=== PATIENT | female | born 1995 | race Caucasian/White ===

== ENCOUNTER 2018-12-19 13:47 | Inpatient (IN) | payer OTHER ==
[2018-12-19] MEDS ORDERED: NS 1,000 ML IV ONE (14:25)
[2018-12-19] MEDS ORDERED: ONDANSETRON 4 MG/2 ML VIAL IVP ONE (14:25)
[2018-12-19] MEDS ORDERED: LORazepam 2 MG/ML INJ IVP ONE ×2 (14:25→16:34)
--- NOTE | 2018-12-19 14:27 | EDPHY ---
H & P Stated Complaint: withdrawal from etoh vomiting anxiety (has scratches from kitten over her a Time Seen by Provider: 12/19/18 14:01 HPI/ROS: CHIEF COMPLAINT: Alcohol withdrawal, suicidal thoughts, anxiety HISTORY OF PRESENT ILLNESS: Patient presents the ED with symptoms of alcohol withdrawal including vomiting and anxiety. The patient reports she has occasional suicidal thoughts which are the precipitant to her drinking. The patient had been under the care of a prescriber in had been on psychiatric medications which she is no longer taking. The patient denies any history of fall or trauma. The patient denies specific suicidal plan. Patient is requesting an IV medications for symptoms surrounding her anxiety and vomiting. The patient reports that she has a small kidney at home and has sustained multiple superficial scratches on her arms and face from the cat. REVIEW OF SYSTEMS: A comprehensive 10 point review of systems is otherwise negative aside from elements mentioned in the history of present illness. Source: Patient Exam Limitations: No limitations - Personal History LMP (Females 10-55): IUD In Place Current Tetanus Diphtheria and Acellular Pertussis (TDAP): Yes - Medical/Surgical History Hx Asthma: No Hx Chronic Respiratory Disease: No Hx Diabetes: No Hx Cardiac Disease: No Hx Renal Disease: No Hx Cirrhosis: No Hx Alcoholism: Yes Hx HIV/AIDS: No Hx Splenectomy or Spleen Trauma: No Other PMH: eating disorder/bulimia - Social History Smoking Status: Current every day smoker - Physical Exam Exam: General Appearance: Alert, no distress Eyes: Pupils equal and round no pallor or injection ENT, Mouth: Mucous membranes moist Respiratory: There are no retractions, lungs are clear to auscultation Cardiovascular: Regular rate and rhythm Gastrointestinal: Abdomen is soft and nontender, no masses, bowel sounds normal Neurological: A&O, normal motor function, normal sensory exam, normal cranial nerves Skin: Multiple superficial scratches Musculoskeletal: Neck is supple nontender Extremities: symmetrical, full range of motion Psychiatric: Patient is oriented X 3, there is no agitation, endorses suicidal ideation without a plan Constitutional: Initial Vital Signs Temperature (C) 37.4 C 12/19/18 13:50 Heart Rate 143 H 12/19/18 13:50 Respiratory Rate 12/19/18 13:50 Blood Pressure 149/115 H 12/19/18 13:50 O2 Sat (%) 94 12/19/18 13:50 O2 Delivery Mode Room Air Allergies/Adverse Reactions: No Known Allergies Allergy (Unverified 12/19/18 13:49) Home Medications: Medication Instructions Recorded Concerta 12/19/18 traZODone 12/19/18 Medical Decision Making ED Course/Re-evaluation: The patient presents the emergency department with alcohol withdrawal symptoms. The patient also endorses symptoms of suicidal ideation without a specific plan. The patient was noted to have cuts on her body which did appear to be consistent with animal scratches. The patient had an IV established. She received 1 mg of Ativan. She received 4 mg of IV Zofran. Laboratory testing is unremarkable. The patient was medically cleared for psychiatric evaluation. She was placed on a [facility] did detainer in the emergency department by myself. The patient was seen by Psychiatry. They do not feel she meets criteria for involuntary psychiatric hospitalization but do feel that she would be reasonable for voluntary psychiatric admission which the patient would like to do. The patient was accepted for admission to the [facility] inpatient psychiatric unit by Dr. Nieto. [facility]. Differential Diagnosis: Differential diagnosis considered includes alcohol intoxication, alcohol withdrawal syndrome, suicidal ideation, anxiety, psychosis, depression - Data Points Laboratory Results: Laboratory Results 12/19/18 14:40 12/19/18 14:40 12/19/18 12/19/18 12/19/18 14:40 14:40 14:40 WBC RBC Hgb Hct MCV MCH MCHC RDW Plt Count MPV Neut % (Auto) Lymph % (Auto) [place] % (Auto) Eos % (Auto) Baso % (Auto) Nucleat RBC Rel Count Absolute Neuts (auto) Absolute Lymphs (auto) Absolute Monos (auto) Absolute Eos (auto) Absolute Basos (auto) Absolute Nucleated RBC Immature Gran % Immature Gran # Sodium 138 mEq/L mEq/L (135-145) Potassium 4.5 mEq/L mEq/L (3.5-5.2) Chloride 102 mEq/L mEq/L (97-110) Carbon Dioxide 18 mEq/l L mEq/l (22-31) Anion Gap 18 mEq/L H mEq/L (6-14) BUN 10 mg/dL mg/dL (7-23) Creatinine 0.8 mg/dL mg/dL (0.6-1.0) Estimated GFR > 60 Glucose 80 mg/dL mg/dL (70-100) Calcium 9.4 mg/dL mg/dL (8.5-10.4) Beta HCG, Qual NEGATIVE Urine Opiates Screen NEGATIVE (NEGATIVE) Acetaminophen < 10 mcg/mL L mcg/mL (10-30) Urine Barbiturates NEGATIVE (NEGATIVE) Ur Phencyclidine Scrn NEGATIVE (NEGATIVE) Ur Amphetamine Screen NEGATIVE (NEGATIVE) U Benzodiazepines Scrn NEGATIVE (NEGATIVE) Urine Cocaine Screen NEGATIVE (NEGATIVE) U Marijuana (THC) Screen NON-NEGATIVE H (NEGATIVE) Ethyl Alcohol 147 mg/dL H mg/dL (0-10) 12/19/18 14:40 WBC 6.15 10^3/uL 10^3/uL (3.80-9.50) RBC 4.48 10^6/uL 10^6/uL (4.18-5.33) Hgb 13.9 g/dL g/dL (12.6-16.3) Hct 39.4 % % (38.0-47.0) MCV 87.9 fL fL (81.5-99.8) MCH 31.0 pg pg (27.9-34.1) MCHC 35.3 g/dL g/dL (32.4-36.7) RDW 12.7 % % (11.5-15.2) Plt Count 300 10^3/uL 10^3/uL (150-400) MPV 9.3 fL fL (8.7-11.7) Neut % (Auto) 75.4 % H % (39.3-74.2) Lymph % (Auto) 20.0 % % (15.0-45.0) [place] % (Auto) 3.7 % L % (4.5-13.0) Eos % (Auto) 0.0 % L % (0.6-7.6) Baso % (Auto) 0.7 % % (0.3-1.7) Nucleat RBC Rel Count 0.0 % % (0.0-0.2) Absolute Neuts (auto) 4.64 10^3/uL 10^3/uL (1.70-6.50) Absolute Lymphs (auto) 1.23 10^3/uL 10^3/uL (1.00-3.00) Absolute Monos (auto) 0.23 10^3/uL L 10^3/uL (0.30-0.80) Absolute Eos (auto) 0.00 10^3/uL L 10^3/uL (0.03-0.40) Absolute Basos (auto) 0.04 10^3/uL 10^3/uL (0.02-0.10) Absolute Nucleated RBC 0.00 10^3/uL 10^3/uL (0-0.01) Immature Gran % 0.2 % % (0.0-1.1) Immature Gran # 0.01 10^3/uL 10^3/uL (0.00-0.10) Sodium Potassium Chloride Carbon Dioxide Anion Gap BUN Creatinine Estimated GFR Glucose Calcium Beta HCG, Qual Urine Opiates Screen Acetaminophen Urine Barbiturates Ur Phencyclidine Scrn Ur Amphetamine Screen U Benzodiazepines Scrn Urine Cocaine Screen U Marijuana (THC) Screen Ethyl Alcohol Medications Given: Discontinued Medications Sodium Chloride (Ns) 1,000 mls @ 0 mls/hr IV EDNOW ONE; Wide Open PRN Reason: Protocol Stop: 12/19/18 14:26 Last Admin: 12/19/18 14:45 Dose: 1,000 mls Lorazepam (Ativan Injection) 1 mg IVP EDNOW ONE Stop: 12/19/18 14:26 Last Admin: 12/19/18 14:58 Dose: 1 mg Lorazepam (Ativan Injection) 1 mg IVP EDNOW ONE Stop: 12/19/18 16:35 Last Admin: 12/19/18 16:47 Dose: 1 mg Ondansetron HCl (Zofran) 4 mg IVP EDNOW ONE Stop: 12/19/18 14:26 Last Admin: 12/19/18 14:58 Dose: 4 mg Departure - Departure Disposition: [facility] IP Clinical Impression: Alcoholic intoxication, Alcohol dependence Condition: Good Referrals: NONE *PRIMARY CARE P,. [Primary Care Provider] - As per Instructions
[2018-12-19 15:01] LABS: PLATELET COUNT 300 10^3/uL (150-400)
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
--- NOTE | 2018-12-19 20:23 | ASMTTCLDSP ---
TLC Discharge Disposition Disposition: Answers: Admit Discharge Concerns/Recommendations: Notes: Pt was offered voluntary mental health admission due to significant degree of depression and SI without a plan; Pt accepted. The ED physician, Dr Viveros and the on-call psychiatrist, Dr Nieto agreed with hospitalization. Dr Nieto accepted pt. Was patient given the Answers: Yes Inpatient Behavioral Health Prohibited Belongings List while in the ED? For inpatient Dr Nieto admission, the following psychiatrist agreed to accept patient for admission to Behavioral Health ([facility]): Date Signed: 12/19/2018 08:23 PM Electronically Signed By:Alva Toribio
[2018-12-19] MEDS ORDERED: chlordiazePOXIDE 25 MG CAP PO PRN ×2 (20:51→22:42)
[2018-12-19] MEDS ORDERED: LORazepam 1 MG TAB PO PRN ×2 (20:51→22:08)
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
[2018-12-19] MEDS ORDERED: chlordiazePOXIDE 25 MG CAP PO SCH (22:00)
[2018-12-19] MEDS ORDERED: PROMETHAZINE HCL 25 MG SUPPR PR PRN (22:42)
[2018-12-19] MEDS ORDERED: OLANZapine 5 MG TAB PO PRN (22:42)
[2018-12-19] MEDS ORDERED: ACETAMINOPHEN 325 MG TAB PO PRN (22:42)
[2018-12-19] MEDS ORDERED: PROMETHAZINE HCL 25 MG TAB PO PRN (22:42)
[2018-12-19] MEDS ORDERED: MAGNESIUM HYDROXIDE 30 ML UDCUP PO PRN (22:42)
[2018-12-19] MEDS ORDERED: THIAMINE HCL 100 MG TAB PO ONE (22:42)
[2018-12-19] MEDS ORDERED: IBUPROFEN 200 MG TAB PO PRN (22:42)
[2018-12-19] MEDS ORDERED: MELATONIN 3 MG TAB PO PRN (22:45)
[2018-12-20] MEDS: THIAMINE HCL 100 MG TAB PO SCH (08:38)
[2018-12-20] MEDS: MULTIVITAMINS 1 EACH TAB PO SCH (08:38)
[2018-12-20] MEDS: FOLIC ACID 1 MG TAB PO SCH (08:38)
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
--- NOTE | 2018-12-20 10:05 | PDMN ---
Medical Necessity Medical necessity: Pt meets inpt criteria per MD order and [id number], Major Depressive Disorder, Adult: Inpatient Care, 3 days. 23 y/o w/significant degree of depression and suicidal ideation without a plan admitted voluntarily w/major depressive disorder, recurrent, severe, PTSD, alcohol use disorder, and ADHD.
--- NOTE | 2018-12-20 14:47 | ASMTCMCOM ---
CM Note CM Note Notes: Pt and CC met to complete MTP. Pt. reports no current legal issues. Pt. reports going on an "alcohol tran" recently and drinking "two handles" of alcohol. Pt. reports smoking or vaping THC twice a week. Pt. stated she does not currently use any other substances, but stated she had used cocaine and shane in the past, adding it was many years ago. Pt. reports recently getting off the medication Lexapro adding she is willing to restate this medication if needed. Pt. reports this being her first mental health hospitalization. Pt. stated she has scratches all over her hands from her new 10 week old kitten. Pt. presents as alert, slightly elevated, unkempt, good eye contact, and cooperative. Staff report pt sleeping 6 hours and being medication compliant. Staff report pt. vomiting this morning, pt reporting they weren't feeling well. Pt. signed ROIs for her father and [facility] where her therapist is located. CC to reach out to attempt to secure follow up appointments with [facility] therapist. Pt's father provided CC with insurance card, which CC contacted UR team about updating pt's insurance. Date Signed: 12/20/2018 02:46 PM Electronically Signed By:Shannon Oro
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
[2018-12-20] MEDS: traZODone 50 MG TAB PO PRN (19:09)
[2018-12-20] MEDS: ESCITALOPRAM OXALATE 10 MG TAB PO SCH (19:09)
[2018-12-21] MEDS: MAG HYDROX/AL HYDROX/SIMETH 30 ML UDCUP PO PRN (04:56)
[2018-12-21] MEDS: THIAMINE HCL 100 MG TAB PO SCH (08:20)
[2018-12-21] MEDS: FOLIC ACID 1 MG TAB PO SCH (08:20)
[2018-12-21] MEDS: MULTIVITAMINS 1 EACH TAB PO SCH (08:20)
[2018-12-21] MEDS: NICOTINE POLACRILEX 2 MG GUM B PRN ×3 (10:50→16:09)
--- NOTE | 2018-12-21 11:59 | ASMTCMCOM ---
CM Note CM Note Notes: Pt. reports "feel a lot better than yesterday". Pt. reports feeling "constant panic anxiety", adding she is "worried about other people's emotions. School stuff and apartment stuff". Pt. reports sleeping "little bit better" adding she woke up at 2:30am. Pt. reports eating well, adding she believes she has "residual hunger" from not eating much recently. Pt. reports having "lots of acid reflux". CC informed pt she can have people bring in foods that are easier on her stomach. Pt. reports attending groups. Pt. reports no issues with her current medications. Pt. reports having a "trazadone hangover". Pt. denied SI, HI, AVH and paranoia. Pt. stated "not really" when asked about SI, adding she is "realyl depressed and worried". Pt. stated she isn't sure when she will be discharging, but stated she "feel better today". Pt. reports having these panic feelings for the last month. Pt. reports panic and anxiety attacks, adding she usually throws up during both. Pt. stated she has panic attacks for "no reason" while during anxiety attacks she "can pinpoint" the reason for it. Pt. presents as alert, calm, friendly, good eye contact, polite and cooperative. Staff report pt. sleeping 6.5 hours and being medication compliant. CC to reach out to pt's [facility] therapist to schedule follow up appointment. Date Signed: 12/21/2018 11:58 AM Electronically Signed By:Shannon Oro
[2018-12-21] MEDS ORDERED: LACTASE 3,000 UNIT TAB PO PRN (17:55)
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
[2018-12-21] MEDS: ESCITALOPRAM OXALATE 10 MG TAB PO SCH (21:40)
[2018-12-21] MEDS: traZODone 50 MG TAB PO PRN (21:40)
[2018-12-22 07:05] VITALS: BP 151/77
[2018-12-22] MEDS: MAG HYDROX/AL HYDROX/SIMETH 30 ML UDCUP PO PRN (07:05)
[2018-12-22] MEDS: THIAMINE HCL 100 MG TAB PO SCH (08:24)
[2018-12-22] MEDS: FOLIC ACID 1 MG TAB PO SCH (08:24)
[2018-12-22] MEDS: MULTIVITAMINS 1 EACH TAB PO SCH (08:24)
[2018-12-22] MEDS: NICOTINE POLACRILEX 2 MG GUM B PRN (09:04)
--- NOTE | 2018-12-22 13:41 | BDS ---
[f rep st] BEHAVIORAL HEALTH DISCHARGE SUMMARY REASON FOR ADMISSION: From the ED note dated 12/19/2018, patient presented to the emergency department with symptoms of alcohol withdrawal including vomiting and anxiety. Patient reported occasionally having suicidal thoughts, which are the precipitant to her drinking. Patient was admitted voluntarily due to being a danger to herself. Patient was admitted for safety, crisis stabilization, and medication management. ADMITTING DIAGNOSES: 1. Major depressive disorder, recurrent episode, severe, with anxious distress. 2. Attention deficit hyperactive disorder (ADHD). 3. Posttraumatic stress disorder (PTSD). 4. Alcohol use disorder, severe. ADMISSION PHYSICAL EXAM: Patient was seen on 12/19/2018 for an H and P consultation for medical clearance for inpatient psychiatric hospitalization and treatment. Patient was medically cleared for inpatient psychiatric hospitalization and treatment. For further details, please refer to document consultation dated 12/19/2018. ADMISSION LABS: 1. CBC within normal limits except neutrophils were elevated at 75.4, monocytes were low at 3.7, eosinophils were low at 0.0, absolute monocytes were low at 0.23, absolute eosinophils were low at 0.00. 2. BMP within normal limits except carbon dioxide was low at 18. Anion gap was elevated at 18. 3. Hemoglobin A1c within normal limits at 5.0. 4. Liver function within normal limits except AST was elevated at 50. 5. Lipid panel within normal limits except cholesterol was elevated at 221, LDL cholesterol calculated was elevated at 122, non-HDL cholesterol was elevated at 144, HDL cholesterol was elevated at 77. 6. Beta HCG qualitative test was negative. 7. Toxicology screen was non-negative for THC, negative for other substances screened. Ethyl alcohol level was 147. MAJOR PROCEDURES OR TESTS: None. HOSPITAL COURSE: The most prominent symptoms and behaviors while the patient was here were reports of moderate depression. The patient also exhibited signs and symptoms of alcohol withdrawal on 12/20/2018. Treatment modalities utilized were milieu and group therapy. [facility] protocol was initiated to monitor withdrawal symptoms throughout the course of the patient's hospitalization closely. The patient showed no signs or symptoms of alcohol withdrawal on 12/21/2018, and showed no signs or symptoms of alcohol withdrawal on 12/22/2018. Lexapro 10 mg was started to target mood symptoms, was tolerated with no report of side effects. Trazodone 50 mg p.o. at bedtime was continued to target mood symptoms and insomnia related to depression and anxiety, was tolerated with no report of side effects and with good response. Patient has improved considerably with no signs of psychiatric symptoms and no psychiatric symptoms expressed. Patient reports she has improved since admission, states to be in stable condition, feels safe to discharge, and she contracts for safety. Patients response to treatment was good. There were no adverse or unexpected results of treatment. The patient was safe throughout stay, active in treatment, engaged in groups, and was appropriate with staff. Patient met with treatment team, with her mother present at patient's request, prior to discharge to assess readiness to discharge and review discharge plan. The treatment team consensus is the patient in stable condition, has a safe discharge plan, and is ready to discharge today. CONDITION AT DISCHARGE: Patient is in stable condition and is no longer a danger to self or others, and is not gravely disabled due to mental illness. Patient is no longer in need of inpatient level of care, and can be safely and effectively treated within the community. The patients level of risk at time of discharge is low. MSE: The patient is casually dressed and with good hygiene , and looks stated age. Patient is sitting, posture is upright, and position is relaxed. Patient appears awake, alert, and responds appropriately and reasonably during interview. Patient is engaged, relates well to interviewer, and emotional facial expression is appropriate to situation and changes appropriately with topic. Patient is cooperative, makes comfortable eye contact , and movements are voluntary, deliberate, coordinated, and smooth and even with no inappropriate movements. Patient makes laryngeal sounds effortlessly and shares conversation appropriately; pace of conversation is appropriate, and stream of talking is fluent; articulation is clear and understandable; word choice is effortless and appropriate for education level; completes sentences, occasionally pausing to think; rate and volume are appropriate for interview and setting. Patient reports mood as euthymic. Patients affect is stable with full variable range, congruent with mood, and appropriate to speech and circumstances. Patient has linear and logical thinking, with no loose associations, tangential thought, thought blocking, concrete thinking, or any other signs of formal thought disorder. Patient denies suicidal and homicidal ideation, and denies hallucinations and delusions. Patient appears to be a reliable historian with sound judgement and good insight into current condition. Patient has no apparent dysfunction in recent or remote memory noted , and no evidence of gross cognitive dysfunction noted at any point during the interview. DISCHARGE DIAGNOSES: 1. Major depressive disorder, recurrent episode, severe, with anxious distress. 2. Attention deficit hyperactive disorder (ADHD). 3. Posttraumatic stress disorder (PTSD). 4. Alcohol use disorder, severe. CURRENT MEDICATIONS: After reviewing options risks and benefits with the patient, the patient agrees to continue: 1. Lexapro 10 mg p.o. daily. 2. Folic acid 1 mg p.o. daily. 3. Motrin 400 mg p.o. q.6 hours p.r.n. 4. Multivitamin 1 each p.o. daily. 5. Nicorette gum 2 mg q.1 hour p.r.n. 6. Vitamin B1 100 mg p.o. daily. 7. Trazodone 50 mg p.o. at bedtime. 8. Concerta 54 mg p.o. daily. Patient requests prescription for Lexapro at the time of discharge and a prescription for 30 days is provided. Patient reports she has prescriptions for her other medications. Lexapro prescription and medications are reviewed with the patient at time of discharge to ensure accuracy and patient understanding. DISPOSITION: Patient left hospital independently and voluntarily with her mother after meeting with this DOGGER and treatment team to review treatment plan, discharge plan, and ongoing patient treatment goals. FOLLOWUP: community development coordinator reports the appropriate outpatient follow-up services have been established and outpatient appointments have been scheduled. The patient received written instructions with times and dates of outpatient follow-up appointments. The following follow-up recommendations were provided to the patient at discharge: Continue psychotropic medications as prescribed and attend appointments as scheduled. Report any side effects to a psychiatric outpatient provider, a primary care provider, or other health neonatal critical care nurse. Address any questions or problems concerning the psychotropic medications with a psychiatric outpatient provider, a primary care provider, or other health neonatal critical care nurse. Contact [facility] or [facility], or go to the nearest emergency room, if you are ever a danger to yourself/others, or unable to care for yourself. As soon as possible, establish a routine medication management treatment with a psychiatric provider, establish routine therapy appointments, and follow-up with a primary care provider. SUBSTANCE ABUSE BRIEF INTERVENTION: Brief intervention regarding the risks of alcohol abuse is provided to patient with goal to reduce the risk of harm that could result from the continued use of alcohol, with the general aim to investigate the problem, raise awareness of problem, develop a solution with the patient, recommend a specific change or activity, and motivate the patient toward change. Assess substance abuse behavior and give supportive advice about harm reduction, recommend a reduction in hazardous/at-risk consumption patterns, and facilitate referrals for additional specialized treatment with group care worker. Intermediate goal is for the patient to quit and attend outpatient substance abuse treatment. Intervention focus on intermediate goals to allow for more immediate success in the treatment process to keep the patient motivated. Review following with patient: Alcohol/Binge Drinking risks : short-term: injuries, violence, alcohol poisoning, risky sexual behaviors. Long-term: high blood pressure, stroke, liver disease, digestive problems, cancer, learning and memory problems, depression and anxiety, social problems, and alcohol dependence. OUTPATIENT SUBSTANCE ABUSE TREATMENT: Patient referred to outpatient provider and treatment for continued treatment related to substance abuse. LEGAL COURSE: Patient was admitted voluntarily. Patient remained voluntarily throughout the course of her hospitalization. Patient discharged today independently and voluntarily ATTITUDE AT TIME OF DISCHARGE: The patients attitude was positive at time of discharge, and patient reports looking forward to discharging today. The patient reports she feels safe to discharge, is no longer a danger to herself or others, is in stable condition, and contracts for safety. Patient states she will continue medications as prescribed, and establish medication management treatment with an outpatient provider after discharge. Patient reports she understands the information that has been provided to her, and she understands, accepts, and agrees to psychotropic medications. Patient describes internal protective factors as the coping skills she has learned while hospitalized here, and she plans to continue to practice these coping skills after discharge. LABS AND STUDIES: There were no pending labs or studies at time of discharge. ADVANCE DIRECTIVES: There were no advance directives on file, and patient was full code during this hospitalization. The following psychotropic medication treatment informed consent and recommendations were provided to the patient at time of discharge. Patient reports she understands, accepts, and agrees to the information that has been provided. PSYCHOTROPIC MEDICATION TREATMENT INFORMED CONSENT and RECOMMENDATIONS: Review nature of condition, diagnosis, and prognosis. Review nature and purpose of psychotropic medication treatment. Review type of psychotropic medications being prescribed. Review risk and benefits of psychotropic medication treatment. Review probable length of time will need to take medications. Review risk and benefits of not undergoing psychotropic medication treatment. Review alternative treatments to psychotropic medications. Review psychotropic medications contraindications, side effects, and importance of reporting any side effects to a psychiatric provider, primary care provider, or other health neonatal critical care nurse. Review importance of her asking a psychiatric provider or primary care provider any questions or problems concerning the psychotropic medications. Review importance of reporting to a psychiatric provider, primary care provider, or other health neonatal critical care nurse if she plans to or becomes . Review safety plan and the importance to contact [facility] or [facility] , or go to the nearest emergency room, if ever a danger to yourself/others, or unable to care for yourself. Recommend upon discharge to establish routine medication management treatment with a psychiatric provider, establish routine therapy appointments, and follow-up with a primary care provider. Verify patient understands, accepts, and agrees to the information that has been provided. /[id number]
== END 2018-12-22 12:46 | disposition home or self-care (01) | DRG 885 ==
LOC: BBEH 22:00
PROVIDERS: ADMIT Psychiatry & Neurology Psychiatry; ATTEND Psychiatry & Neurology Psychiatry
DX: F33.3 Major depressive disorder, recurrent, severe with psychotic symptoms (principal); F10.239 Alcohol dependence with withdrawal, unspecified; F90.9 Attention-deficit hyperactivity disorder, unspecified type; F43.10 Post-traumatic stress disorder, unspecified; Z72.0 Tobacco use; Y90.6 Blood alcohol level of 120-199 mg/100 ml; I10 Essential (primary) hypertension
CPT/HCPCS: 80305; 96374; G0480; J2060; J2405